=== PATIENT | female | born 1985 | race Caucasian/White ===

== ENCOUNTER 2016-06-25 07:49 | Emergency (ER) | payer BC, OTHER ==
[~2016-06-25] VITALS: Ht 160 cm; Wt 77.5 kg
[~2016-06-25 07:49] MED LIST: CHOL100010 PO; CLR10 PO; MTR600X PO; OXYC5TAB PO; PRENTAB26 PO; SERT-234 PO
[2016-06-25 07:51] VITALS: TEMP 36.4; Ht 160 cm; Wt 77.5 kg
[2016-06-25] MEDS ORDERED: ONDANSETRON INJ 2 MG/ML 2 ML VIAL IV STA ×2 (08:28→11:24)
[2016-06-25] MEDS ORDERED: SODIUM CHLORIDE 0.9% 1000ML 1,000 ML IV ONE ×2 (08:30)
[2016-06-25 08:52] LABS: COMPLETE YES; EOS % 0.3 %; HEMATOCRIT 44.1 % (37-47); IG% 0.2 %; LYMPH % 5.3 %; LYMPH ABS # 0.53 K/uL (1.2-3.4); MEAN CELL VOLUME 82.1 fL (80-100); MEAN CORPUSCULAR HEMOGLOBIN 28.5 pg (25-34); MEAN CORPUSCULAR HGB CONC 34.7 g/dl (32-36); MEAN PLATELET VOLUME 9.9 fL (7.4-10.4); MONO % 4.2 %; PLATELET COUNT 227 K/uL (130-400); RED BLOOD COUNT 5.37 M/uL (4.2-5.4); WHITE BLOOD COUNT 10.07 K/uL (4.8-10.8)
[2016-06-25 09:00] LABS: CALCIUM 9.3 mg/dl (8.5-10.1); CREATININE 0.87 mg/dl (0.60-1.20); POTASSIUM 4.1 mmol/L (3.5-5.1)
[2016-06-25 09:03] LABS: ALB/GLOB RATIO 1.2 (0.9-2)
[2016-06-25 09:05] LABS: URINE APPEARANCE CLEAR (CLEAR); URINE BILIRUBIN NEG (NEG); URINE COLOR DK YELLOW; URINE NITRITE NEG (NEG); URINE PH >= 9.0 (4.5-7.5); URINE SPECIFIC GRAVITY 1.033 (1.000-1.030); UROBILINOGEN NEG (NEG); ZZUR CULT IF INDIC CLEAN CATCH NO
[2016-06-25 09:17] LABS: MANUAL MICROSCOPIC REQUIRED? YES; REVIEW REQ? NO
[2016-06-25 09:18] LABS: SULFASALICYLIC ACID NEG (NEG)
[2016-06-25] MEDS ORDERED: KETOROLAC TROMETHAMINE 30 MG/ML VIAL IV STA (09:20)
--- NOTE | 2016-06-25 09:24 | DIAGNOSTIC IMAGING REPORT ---
KUB CLINICAL HISTORY: Nausea and vomiting. Diarrhea. FINDINGS: 2 AP supine abdominal radiographs are correlated with abdominal CT dated 03/04/2016. There is a nonobstructed abdominal bowel gas pattern. No evidence of intraperitoneal free air is seen on these supine views. There are no abnormal abdominal calcifications. The bony structures appear intact. The lung bases are clear as imaged. IMPRESSION: Unremarkable abdominal radiographs. Electronically signed by: Dannie Garcia M.D. 06/25/2016 9:22 AM Dictated Date/Time: 06/25/2016 9:21 AM
[2016-06-25 09:39] LABS: URINE RBC 0-4 /hpf (0-4)
[2016-06-25 09:40] LABS: URINE BACTERIA NEG (NEG)
[2016-06-25 11:05] VITALS: BP 101/58; PULSE 107; O2SAT 98
[2016-06-25] MEDS ORDERED: ONDA4TAB10 SL (11:26)
--- NOTE | 2016-06-25 13:52 | EMERGENCY ROOM VISIT NOTE ---
History First contact with patient: 07:56 Chief Complaint: VOMITING Stated Complaint: VOMITING/DIARRHEA Nursing Triage Summary: pt c/o diarrhea and vomiting started last night at 2230. pt reports this is 3rd time in 1.5 weeks. abd pain in mid abd History of Present Illness The patient is a 31 year old female who presents to the Emergency Room with complaints of nausea, vomiting, and diarrhea that has been ongoing for about the past 10 hours. The patient has not been ill recently, and has some mild abdominal cramping. She does not believe that she is . The patient is without vaginal complaints or lightheadedness. She has developed a mild headache from her emesis. She does report being on antibiotics about a month ago. She does not have a past history of C. difficile. She rates her discomfort an 8/10. Review of Systems More than 10 systems were reviewed and otherwise negative with the exception of history of present illness. Past Medical/Surgical History Medical Problems: (1) Gestational hypertension (2) (3) Supervision of normal intrauterine in primigravida Family History Diabetes mellitus Heart disease Hypertension Social History Smoking Status: Never Smoker Marital Status: single Occupation Status: employed Current/Historical Medications Scheduled Cholecalciferol (Vitamin D), 2,000 INTER.UNIT PO DAILY Loratadine (Claritin), 10 MG PO DAILY Multivit/Min/Iron/Fol Ac/Pren ( Vitamin), 1 TAB PO DAILY Ondasetron Odt (Zofran Odt), 4 MG SL Q6H Sertraline (Zoloft), 100 MG PO DAILY Scheduled PRN Ibuprofen (Ibuprofen), 600 MG PO Q4H PRN for Pain, SIBLEY, Cramping, or Fever Allergies Coded Allergies: Dior (Verified Allergy, Intermediate, SWELLING, 06/25/16) Cat Dander (Verified Allergy, Intermediate, itching, 06/25/16) Clindamycin (Verified Allergy, Mild, FACIAL SWELLING., 06/25/16) Sulfamethoxazole (Verified Allergy, Mild, LIP SWELLING, 06/25/16) Trimethoprim (Verified Allergy, Mild, LIP SWELLING, 06/25/16) Penicillins (Verified Allergy, Unknown, RASH, 06/25/16) Physical Exam Vital Signs Date Time Temp Pulse Resp B/P Pulse Ox O2 Delivery O2 Flow Rate FiO2 06/25/16 11:05 107 20 101/58 98 Room Air 06/25/16 09:19 98 18 99/67 98 Room Air 06/25/16 07:51 36.4 118 18 114/71 97 Room Air Pain Rating (0-10): 4.0 Physical Exam VITALS: Vitals are noted on the nurse's note and reviewed by myself. Vital signs stable. GENERAL: Well-developed, well-nourished, white female, who is in no acute distress and resting comfortably. Patient is cooperative with the examination. HEAD: Normocephalic atraumatic. MOUTH: Mucous membranes moist. Tonsils are not enlarged. Pharynx without erythema, blood, or exudate. Uvula midline. Airway patent. NECK: Supple without nuchal rigidity. No lymphadenopathy. No thyromegaly. Cervical spine is nontender. HEART: Regular rate and rhythm without murmurs gallops or rubs. LUNGS: Clear to auscultation bilaterally without wheezes, rales or rhonchi. No retractions or accessory muscle use. ABDOMEN: Positive normal bowel sounds x 4. Soft, nontender, without masses or organomegaly. No guarding or rebound tenderness. MUSCULOSKELETAL: No muscle atrophy, erythema, or edema noted. Full range of motion without joint tenderness in all extremities. NEURO: Patient was alert and oriented to person place and time. CN II through XII grossly intact. Medical Decision & Procedures ER Provider Diagnostic Interpretation: KUB CLINICAL HISTORY: Nausea and vomiting. Diarrhea. FINDINGS: 2 AP supine abdominal radiographs are correlated with abdominal CT dated 03/04/2016. There is a nonobstructed abdominal bowel gas pattern. No evidence of intraperitoneal free air is seen on these supine views. There are no abnormal abdominal calcifications. The bony structures appear intact. The lung bases are clear as imaged. IMPRESSION: Unremarkable abdominal radiographs. Laboratory Results 06/25/16 08:20 Red Blood Count 5.37, Mean Corpuscular Volume 82.1, Mean Corpuscular Hemoglobin 28.5, Mean Corpuscular Hemoglobin Concent 34.7, Mean Platelet Volume 9.9, Neutrophils (%) (Auto) 90.0, Lymphocytes (%) (Auto) 5.3, Monocytes (%) (Auto) 4.2, Eosinophils (%) (Auto) 0.3, Basophils (%) (Auto) 0.0, Neutrophils # (Auto) 9.07, Lymphocytes # (Auto) 0.53, Monocytes # (Auto) 0.42, Eosinophils # (Auto) 0.03, Basophils # (Auto) 0.00 06/25/16 08:20 Test 06/25/16 08:12 06/25/16 08:20 Urine Color DK YELLOW Urine Appearance CLEAR (CLEAR) Urine pH >= 9.0 (4.5-7.5) Urine Specific [place] 1.033 (1.000-1.030) Urine Protein NEG (NEG) Urine Glucose (UA) NEG (NEG) Urine Ketones NEG (NEG) Urine Occult Blood NEG (NEG) Urine Nitrite NEG (NEG) Urine Bilirubin NEG (NEG) Urine Urobilinogen NEG (NEG) Urine Leukocyte Esterase TRACE (NEG) Urine WBC (Auto) /hpf (0-5) Urine RBC (Auto) /hpf (0-4) Urine Hyaline Casts (Auto) /lpf (0-5) Urine Epithelial Cells (Auto) /lpf (0-5) Urine Bacteria (Auto) (NEG) Urine RBC 0-4 /hpf (0-4) Urine WBC 1-5 /hpf (0-5) Urine Epithelial Cells 10-20 /lpf (0-5) Urine Bacteria NEG (NEG) Urine Test NEG (NEG) White Blood Count 10.07 K/uL (4.8-10.8) Red Blood Count 5.37 M/uL (4.2-5.4) Hemoglobin 15.3 g/dL (12.0-16.0) Hematocrit 44.1 % (37-47) Mean Corpuscular Volume 82.1 fL (80-100) Mean Corpuscular Hemoglobin 28.5 pg (25-34) Mean Corpuscular Hemoglobin Concent 34.7 g/dl (32-36) Platelet Count 227 K/uL (130-400) Mean Platelet Volume 9.9 fL (7.4-10.4) Neutrophils (%) (Auto) 90.0 % Lymphocytes (%) (Auto) 5.3 % Monocytes (%) (Auto) 4.2 % Eosinophils (%) (Auto) 0.3 % Basophils (%) (Auto) 0.0 % Neutrophils # (Auto) 9.07 K/uL (1.4-6.5) Lymphocytes # (Auto) 0.53 K/uL (1.2-3.4) Monocytes # (Auto) 0.42 K/uL (0.11-0.59) Eosinophils # (Auto) 0.03 K/uL (0-0.5) Basophils # (Auto) 0.00 K/uL (0-0.2) RDW Standard Deviation 43.8 fL (36.4-46.3) RDW Coefficient of Variation 14.5 % (11.5-14.5) Immature Granulocyte % (Auto) 0.2 % Immature Granulocyte # (Auto) 0.02 K/uL (0.00-0.02) Anion Gap 11.0 mmol/L (3-11) Est Creatinine Clear Calc Drug Dose 94.0 ml/min Estimated GFR () 104.3 Estimated GFR (Non- 90.0 BUN/Creatinine Ratio 23.0 (10-20) Calcium Level 9.3 mg/dl (8.5-10.1) Magnesium Level 2.0 mg/dl (1.8-2.4) Total Bilirubin 0.5 mg/dl (0.2-1) Aspartate Amino Transf (AST/SGOT) 12 U/L (15-37) Alanine Aminotransferase (ALT/SGPT) 17 U/L (12-78) Alkaline Phosphatase 98 U/L (45-117) Total Protein 8.0 gm/dl (6.4-8.2) Albumin 4.4 gm/dl (3.4-5.0) Globulin 3.6 gm/dl (2.5-4.0) Albumin/Globulin Ratio 1.2 (0.9-2) Lipase 199 U/L (73-393) Medications Administered Medications (Trade) Dose Ordered Sig/Lucinda Route Start Time Stop Time Status Last Admin Dose Admin Sodium Chloride 1,000 ml @ 999 mls/hr Q1H1M ONCE IV 06/25/16 08:30 06/25/16 09:30 DC 06/25/16 08:30 999 MLS/HR Sodium Chloride (Nss 1000ml) 1,000 ml @ 999 mls/hr Q1H1M ONCE IV 06/25/16 08:30 06/25/16 09:30 DC 06/25/16 09:17 999 MLS/HR Ondansetron HCl (Zofran Inj) 4 mg NOW STAT IV 06/25/16 08:28 06/25/16 08:31 DC 06/25/16 08:47 4 MG Ketorolac Tromethamine (Toradol Inj) 30 mg NOW STAT IV 06/25/16 09:20 06/25/16 09:22 DC 06/25/16 09:51 30 MG Ondansetron HCl (Zofran Inj) 4 mg NOW STAT IV 06/25/16 11:24 06/25/16 11:25 DC 06/25/16 11:36 4 MG ED Course Physical exam and history were performed. Nursing notes and EMR were reviewed. Patient appears to have nausea, vomiting, and diarrhea for the past several hours. She does not appear toxic on exam, and certainly does not present like an acute surgical abdomen. IV access was established and labs were obtained. The patient was hydrated 2 L normal saline. She was given IV Zofran. A stool sample was ordered, however the patient was not able to provide one while under our care today. Plain film of the abdomen was performed as the patient does have a past history of abdominal surgery. The patient's blood work is as above and was reviewed. She does not have a significantly elevated white blood cell, anemia, bandemia, or gross electrolyte imbalance. Her lipase and transaminases are nondiagnostic. Urine is without evidence of infection. X-ray does not show obstructive process or other significant findings. The patient did have a mild headache, and I did provide her some IV Toradol. After 2 L of saline, the patient was able to rest very comfortably and felt much better. I will give her a course of Zofran for home use as I suspect her symptoms are either food borne or viral in nature. Repeat abdominal exams do not show significant tenderness, and her abdominal cramping is likely from the emesis. I did recommend the patient follow with her PCP on a short interval for recheck. She was otherwise invited back to the ER with any new, worsening, or concerning symptoms. The patient was pleased with plan of care and voiced understanding. The chart was completed utilizing [employer] - [employer] Voice Recognition Software. Grammatical errors, random word insertions, pronoun errors, and incomplete sentences are an occasional consequence of this system due to software limitations, ambient noise, and hardware issues. Any formal questions or concerns about the content, text, or information contained within the body of this dictation should be directly addressed to the provider for clarification. . Medical Decision Differential diagnosis: Etiologies such as gastroenteritis, food borne illness, infections, appendicitis , diverticulitis, inflammatory bowel disease, obstruction, GI bleed, biliary pathology, as well as others were entertained. Impression Primary Impression: Nausea, vomiting, and diarrhea Departure Information Dispostion Home / Self-Care Condition GOOD Prescriptions Ondasetron Odt (ZOFRAN ODT) 4 Mg Tab 4 MG SL Q6H for Nausea, #12 TAB Prov: Sander Lovell PA-C 06/25/16 Forms HOME CARE DOCUMENTATION FORM, Work Instructions, Additional Instructions: Patient was seen and evaluated in the emergency department today fo medical care. Return to work on 06/27/2016. Please excuse. IMPORTANT VISIT INFORMATION Patient Instructions A Signature Page, My [facility] Additional Instructions You were seen and evaluated today on an emergency basis only. This is not a substitute for, or an effort to provide, complete comprehensive medical care. It is not possible to recognize and treat all injuries or illnesses in a single emergency department visit. For this reason it is recommended that you followup with your primary care physician within the next week for recheck of your condition. Drink plenty of fluids and remain well hydrated. Zofran 1 tablet every 6 hrs as needed for nausea. You are welcome to return to the emergency department anytime with new, worsening, or concerning symptoms. Work Instructions Additional Work Instructions: Patient was seen and evaluated in the emergency department today for medical care. Return to work on 06/27/2016. Please excuse.
== END 2016-06-25 11:43 | disposition home or self-care (01) ==
LOC: C.EDB 07:50 → C.EDA 11:43
DX: R11.2 Nausea with vomiting, unspecified (principal); R19.7 Diarrhea, unspecified; R51 Headache; Z82.49 Family history of ischemic heart disease and other diseases of the circulatory system; Z83.3 Family history of diabetes mellitus

== ENCOUNTER → 2016-08-05 | Outpatient (CLI) | payer BC ==
[~2016-08-05] MED LIST changes: +ONDA4TAB10 SL; -OXYC5TAB PO
== END | disposition home or self-care (01) ==
LOC: C.LABPVFM 12:03
PROVIDERS: ATTEND Family Medicine
DX: J06.9 Acute upper respiratory infection, unspecified (principal)

== ENCOUNTER → 2016-12-02 | Outpatient (CLI) | payer BC ==
--- NOTE | 2016-12-02 12:07 | DIAGNOSTIC IMAGING REPORT ---
CHEST 2 VIEWS ROUTINE CLINICAL HISTORY: Atypical chest pain COMPARISON STUDY: 11/01/2015 FINDINGS: The cardiac and mediastinal contours are normal. There is no evidence of focal pulmonary consolidation. There is no evidence of failure. No pleural effusions are visualized.[ IMPRESSION: No active disease in the chest. Electronically signed by: Rm Cabrera M.D. 12/02/2016 12:06 PM Dictated Date/Time: 12/02/2016 12:06 PM
== END | disposition home or self-care (01) ==
LOC: C.RADPV 11:50
PROVIDERS: ATTEND Family Medicine
DX: R07.9 Chest pain, unspecified (principal)

== ENCOUNTER → 2017-06-11 | Outpatient (CLI) | payer BC, OTHER ==
[~2017-06-11] MED LIST changes: -ONDA4TAB10 SL
[2017-06-11 12:38] LABS: BASO % 0.8 %; BASO ABS # 0.04 K/uL (0-0.2); COMPLETE YES; EOS % 0.6 %; HEMATOCRIT 41.2 % (37-47); IG% 0.2 %; LYMPH % 39.2 %; LYMPH ABS # 1.87 K/uL (1.2-3.4); MEAN CELL VOLUME 83.4 fL (80-100); MEAN CORPUSCULAR HEMOGLOBIN 28.3 pg (25-34); MEAN PLATELET VOLUME 10.2 fL (7.4-10.4); MONO % 7.8 %; NEUT % 51.4 %; PLATELET COUNT 270 K/uL (130-400); RED BLOOD COUNT 4.94 M/uL (4.2-5.4); WHITE BLOOD COUNT 4.77 K/uL (4.8-10.8)
[2017-06-11 13:10] LABS: BLOOD UREA NITROGEN 11 mg/dl (7-18); CALCIUM 9.3 mg/dl (8.5-10.1); CARBON DIOXIDE 27 mmol/L (21-32); CHLORIDE 103 mmol/L (98-107); CREATININE 0.88 mg/dl (0.60-1.20); GLUCOSE 93 mg/dl (70-99); POTASSIUM 4.2 mmol/L (3.5-5.1); SODIUM 135 mmol/L (136-145)
== END | disposition home or self-care (01) ==
LOC: C.LABPVFM 10:04
PROVIDERS: ATTEND Nurse Practitioner
DX: G43.829 Menstrual migraine, not intractable, without status migrainosus (principal); R53.83 Other fatigue

== ENCOUNTER 2018-09-03 12:13 | Observation (INO) ==
[2018-09-03] MEDS ORDERED: SODIUM CHLORIDE 0.9% 1000ML 1,000 ML IV ONE (12:44)
[2018-09-03] MEDS ORDERED: KETOROLAC TROMETHAMINE 15 MG/ML VIAL IV STA (12:44)
[2018-09-03] MEDS ORDERED: CEFEPIME 2,000 MG in SYRINGE 7.5 ML IV STA (12:44)
[2018-09-03] MEDS ORDERED: ACETAMINOPHEN 1,000 MG/100 ML VIAL IV STA (12:44)
[2018-09-03] MEDS ORDERED: DEXAMETHASONE **PF** INJ 10 MG/ML VIAL IV ONE (12:44)
[2018-09-03 13:06] LABS: Hematocrit (blood only) 36.8 % (37-47); Hemoglobin 12.7 g/dL (12.0-16.0); Mean Corpuscular Hgb Conc 34.5 g/dL (32-36); Mean Platelet Volume 9.6 fL (7.4-10.4); Platelet Count 226 K/uL (130-400); RDW Coefficient of Variation 13.2 % (11.5-14.5); Red Blood Count 4.49 M/uL (4.2-5.4); White Blood Count 24.36 K/uL (4.8-10.8)
[2018-09-03 13:23] LABS: BUN Creatinine Ratio 14.6 (10-20); Calcium 9.1 mg/dl (8.5-10.1); Creatinine Clr Calc Pharmacy 103.1 ml/min; Est GFR (African American) 119.2; Est GFR (Non-African American) 102.9; Potassium 3.8 mmol/L (3.5-5.1)
[2018-09-03 13:25] LABS: Albumin Globulin Ratio 1.1 (0.9-2); Bilirubin,Total 0.5 mg/dl (0.2-1); Globulin 3.7 gm/dl (2.5-4.0); Total Protein 7.7 gm/dl (6.4-8.2)
[2018-09-03 13:38] LABS: Basophils # (auto) 0.01 K/uL (0-0.2); Immature Granulocytes # (auto) 0.06 K/uL (0.00-0.02); Immature Granulocytes % (auto) 0.2 %; Lymphocytes # (auto) 0.59 K/uL (1.2-3.4); Lymphocytes % (auto) 2.4 %; Monocytes # (auto) 0.65 K/uL (0.11-0.59); Monocytes % (auto) 2.7 %; Neutrophils # (auto) 23.05 K/uL (1.4-6.5); Neutrophils % (auto) 94.7 %
--- NOTE | 2018-09-03 13:38 | XRay Report ---
XR soft tissue neck TECHNIQUE: AP and lateral soft tissue neck FINDINGS: Normal prevertebral soft tissues. No distention of the hypopharynx. The epiglottis is javier l. IMPRESSION: Normal study. The above report was generated using voice recognition software. It may contain grammatical, syntax or spelling errors. Electronically signed by: Nas Cervantes M.D. 09/03/2018 1:37 PM
--- NOTE | 2018-09-03 15:20 | History & Physical Report ---
Date of Service September 03, 2018 Assessment & Plan (1) Acute pharyngitis: Was strep + about 2 weeks ago and this was treated appropriately with antibiotics at that time. All pharyngitis symptoms resolved, then her sore throat returned yesterday morning. I confirmed that her strep test (rapid) was indeed NEGATIVE yesterday AM at [facility]. Throat culture was sent and to date is negative. Monospot in the ER today was negative. The appearance of her throat today has more of a viral appearance with copious numbers of petechial hemorrhages with occasional ulcerations (adenovirus, coxsackie, etc can look like this) on the palate. Will await the throat culture sent by [facility] yesterday morning. Was given IV abx earlier in the ER - will defer for now on additional antibiotics unless her throat culture is positive. Was given decadron 10mg IV x 1 - this should help with pain control. Clears as tolerated. Magic mouthwash ac/hs swish/spit. Viscous lidocaine prn. [place] prn. IV fluids. Repeat cbc in am. Could conside an EBV panel but the throat appearance would be unusual for mono as well. Present on Admission?: Yes (2) Dehydration: Received saline bolus in ER. Will give additional IV fluids and repeat her chemistries in the am. Allow clear liquid diet and advance as tolerated. Check urine test. mother updated at bedside place on observation status. Present on Admission?: Yes History of Present Illness Chief Complaint: sore throat Primary Care Provider: Lisseth Cintron MD 33yo female with recent history of strep throat about 2 weeks ago - treated with 7-day course of oral antibiotics - presents with recurrent sore throat beginning yesterday morning. She was seen in the [facility] clinic yesterday AM and was rechecked for strep -- rapid strep was negative. She went to the [facility] clinic this am -- had rapid flu test that was negative. Had fever last night - 103. She decided to come to ER today because of difficulty swallowing. Allergies Allergy/AdvReac Type Severity Reaction Status Date / Time cat dander Allergy Intermediate itching Verified 09/03/18 14:44 clindamycin Allergy Mild FACIAL Verified 09/03/18 14:44 SWELLING. sulfamethoxazole Allergy Mild LIP Verified 09/03/18 14:44 SWELLING trimethoprim Allergy Mild LIP Verified 09/03/18 14:44 SWELLING Penicillins Allergy Unknown RASH Verified 09/03/18 14:44 Dior Allergy Intermediate SWELLING Uncoded 09/03/18 14:44 Home Medications Home Medications Medication Instructions Recorded Confirmed Type albuterol sulfate [ProAir HFA] 2 puff INHALATION DAILY PRN 09/03/18 09/03/18 History cholecalciferol (vitamin D3) 5,000 unit PO HS 09/03/18 09/03/18 History [Vitamin D3] ibuprofen 200 mg PO QID PRN 09/03/18 09/03/18 History loratadine 10 mg PO HS 09/03/18 09/03/18 History sertraline 100 mg PO HS 09/03/18 09/03/18 History Past Med/Surg History Medical History Supervision of normal intrauterine in primigravida Gestational hypertension Surgical History H/O umbilical hernia repair History of Family History Father Hypertension Hyperlipidemia Social History Preferred Language: [place] marital status details: lives with significant other Current Living Situation Comment: lives in [place] current occupational status: employed 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 [place] other: 1 son - age 2yo Feels Safe at Home: Yes Smoking Status: Never smoker Hx Alcohol Use: No Review of Systems Constitutional: + fever, + chills and + anorexia; no weight loss and no weight gain Eyes: no eye pain and no worsening vision Ear, Nose, Mouth, Throat: + ear pain, + sore throat and + dysphagia; no nasal congestion Respiratory: no cough and no dyspnea Cardiovascular: no chest pain Gastrointestinal: + vomiting; no abdominal pain and no diarrhea/loose stools Genitourinary (Female): no dysuria LMP - 2 weeks ago Musculoskeletal: + myalgia Integumentary: no rash Neurologic: no numbness Psychiatric: + anxiety; no depression no diabetes Physical Exam Vital Signs (Past 24 Hours): Last Vital Signs Temp 37.2 C 09/03/18 12:20 Pulse 110 H 03/22/19 15:00 Resp 18 09/03/18 15:00 BP 123/77 09/03/18 15:00 Pulse Ox 95 09/03/18 15:00 Constitutional: well developed, well nourished, + ill appearing (looks sick but nontoxic) and average body habitus; no acute distress and no altered mental status Eyes: PERRL, conjunctivae normal, anicteric sclerae ENMT: Ears: + TM abnormality (retracted b/l) Nose: no nasal mucous membrane abnormality and no nasal discharge Mouth: + oropharynx abnormality (see below) tonsils 1+ b/l, minimal exudate on left. Severe petechial hemorrhages of posterior palate and posterior pharyngeal wall with some ulcerations. Neck: trachea midline, no thyromegaly Respiratory: normal respiratory effort, lungs clear to auscultation Cardiovascular: Rate/Rhythm: + tachycardic Heart Sounds: normal S1 and normal S2; no murmur Vessels: posterior tibial pulses present and dorsalis pedis pulses present; no JVD Extremities: no pedal edema Gastrointestinal (Abdomen): normal bowel sounds, soft, nontender, no hepatosplenomegaly Musculoskeletal: no cyanosis or clubbing, extremities motor strength 5/5 Skin: no rashes, warm and dry Neurologic: deep tendon reflexes 2+ bilaterally; no focal motor deficits Psychiatric: A+Ox3, euthymic affect Lymphatic: + cervical lymphadenopathy (1-1.5cm nodes right neck, shotty nodes left neck) Results & Data Laboratory Results Laboratory Results - last 24 hr 09/03/18 09/03/18 09/03/18 12:55 12:55 12:55 WBC 24.36 H RBC 4.49 Hgb 12.7 Hct 36.8 L MCV 82.0 MCH 28.3 MCHC 34.5 RDW Std Deviation 40.0 RDW Coeff of [place] 13.2 Plt Count 226 MPV 9.6 Immature Gran % (Auto) 0.2 Neut % (Auto) 94.7 Lymph % (Auto) 2.4 Mclennan % (Auto) 2.7 Eos % (Auto) 0.0 Baso % (Auto) 0.0 Immature Gran # (Auto) 0.06 H Neut # (Auto) 23.05 H Lymph # (Auto) 0.59 L Mclennan # (Auto) 0.65 H Eos # (Auto) 0.00 Baso # (Auto) 0.01 Sodium 137 Potassium 3.8 Chloride 104 Carbon Dioxide 26 Anion Gap 7.0 BUN 11 Creatinine 0.77 Est Cr Clr Drug Dosing 103.1 Est GFR ( Amer) 119.2 Est GFR (Non-Af Amer) 102.9 BUN/Creatinine Ratio 14.6 Glucose 131 H Calcium 9.1 Total Bilirubin 0.5 AST 9 L ALT 18 Alkaline Phosphatase 68 Total Protein 7.7 Albumin 4.0 Globulin 3.7 Albumin/Globulin Ratio 1.1 Monoscreen Negative Diagnostic Findings soft tissue neck x-ray -- normal Code Status & VTE Plan Code Status level 1 full code VTE Prophylaxis Plan VTE Prophylaxis will be ordered: No Reason for no VTE drug order: Treatment not indicated Reason for no VTE mechanical prophylaxis: Treatment not indicated (1) Acute pharyngitis Pharyngitis/tonsillitis etiology: unspecified etiology Qualified Code(s): J02.9 - Acute pharyngitis, unspecified
--- NOTE | 2018-09-03 16:42 | Emergency Department Note ---
Entered by Jil King acting as a scribe for Dannie Gerber MD History of Present Illness General Chief complaint: Sore Throat Stated complaint: swollen throat Time Seen by Provider: 09/03/18 12:31 Source: patient History of Present Illness Onset (ago): day(s) 1 Location: mouth (Throat) Severity: similar to prior episodes Pain Consistency: + other (Worsening) Maximum Pain Intensity: 10 Quality: + other (Throat pain) Exacerbated By: + other (Drinking liquids) Associated symptoms: + fever/chills (Positive chills. Negative fever. ) and + other (Positive throat pain, ear pain, body aches. Negative dysuria, diarrhea and rhinorrhea) The patient is a 33 year old female who presents to the Emergency Room with complaints of worsening throat pain starting 1 day ago. The patient reports that she has severe throat pain. She states that she has chills, body aches, ear pain in both ears and has vomited. She notes that she tested positive for Strep throat a few weeks ago, but tested negative for Strep throat 2 days ago. She adds that she tested negative for influenza earlier today. The patient reports that multiple members of her family have recently had Strep throat. She states that she did receive a flu shot this past winter. She notes that drinking liquids worsens her throat pain. She denies dysuria, diarrhea and rhinorrhea. Home Medications Home Medications Medication Instructions Recorded Confirmed Type albuterol sulfate [ProAir HFA] 2 puff INHALATION DAILY PRN 09/03/18 09/03/18 History cholecalciferol (vitamin D3) 5,000 unit PO HS 09/03/18 09/03/18 History [Vitamin D3] ibuprofen 200 mg PO QID PRN 09/03/18 09/03/18 History loratadine 10 mg PO HS 09/03/18 09/03/18 History sertraline 100 mg PO HS 09/03/18 09/03/18 History Allergies Allergy/AdvReac Type Severity Reaction Status Date / Time cat dander Allergy Intermediate itching Verified 09/03/18 14:44 clindamycin Allergy Mild FACIAL Verified 09/03/18 14:44 SWELLING. sulfamethoxazole Allergy Mild LIP Verified 09/03/18 14:44 SWELLING trimethoprim Allergy Mild LIP Verified 09/03/18 14:44 SWELLING Penicillins Allergy Unknown RASH Verified 09/03/18 14:44 Dior Allergy Intermediate SWELLING Uncoded 09/03/18 14:44 Past Med/Surg History Medical History Supervision of normal intrauterine in primigravida Gestational hypertension Surgical History H/O umbilical hernia repair History of Family History Father Hypertension Hyperlipidemia Social History Preferred Language: Pashto Communication Ability: Effective Debeaker Required: No Beliefs That Will Affect Care: None marital status details: lives with significant other Current Living Situation: Alone Current Living Situation Comment: lives in [place] current occupational status: employed current occupation: works at [employer] - [employer] work in [place]orms other: 1 son - age 2yo Feels Safe at Home: Yes Safety Concerns: Feels Safe At This Time Smoking Status: Never smoker Hx Alcohol Use: No Hx Substance Use: No Review of Systems See HPI for pertinent positives & negatives. and A total of 10 systems reviewed and were otherwise negative Physical Exam Vital Signs Vital Signs - 24 hr 09/03/18 12:20 09/03/18 14:01 09/03/18 14:31 Temperature 37.2 C Temperature Source Oral Sepsis Recent Fever Within 48 Hours Yes Sepsis New/Unexplained Change in Mental Status No Sepsis Action Taken by Nursing No Action Required Pulse Rate 97 H 121 H 114 H Pulse Rate [Apical] Pulse Rate from SpO2 Sensor 122 H 114 H Respiratory Rate 12 18 18 Respiratory Effort / Characteristics Non-Labored Spontaneous Respiratory Depth Normal Blood Pressure 119/77 108/70 123/77 Blood Pressure [Right Arm] Blood Pressure Mean 91 82 92 Blood Pressure Mean [Right Arm] Blood Pressure Position Sitting Blood Pressure Position [Right Arm] Pulse Oximetry 97 95 96 Oxygen Delivery Method Room Air 09/03/18 15:00 09/03/18 16:41 09/03/18 17:17 Temperature 36.8 C Temperature Source Oral Sepsis Recent Fever Within 48 Hours Sepsis New/Unexplained Change in Mental Status Sepsis Action Taken by Nursing Pulse Rate 103 H Pulse Rate [Apical] 110 H 100 H Pulse Rate from SpO2 Sensor Respiratory Rate 18 18 18 Respiratory Effort / Characteristics Non-Labored Respiratory Depth Normal Blood Pressure 116/67 Blood Pressure [Right Arm] 123/77 118/78 Blood Pressure Mean Blood Pressure Mean [Right Arm] 92 91 Blood Pressure Position Blood Pressure Position [Right Arm] Sitting Pulse Oximetry 95 96 96 Oxygen Delivery Method Room Air Room Air Room Air GENERAL: Patient is in moderate distress. Tearful secondary to pain. HEENT: No acute trauma, normocephalic atraumatic, mucous membranes moist, no nasal congestion, no scleral icterus. Throat is erythematous with multiple ulcers. No evidence for peritonsillar abscess. No uvular edema. TMs clear bilaterally. NECK: No stridor, no adenopathy, no meningismus, trachea is midline. LUNGS: Clear to auscultation bilaterally, no wheeze, no rhonchi, breath sounds equal. HEART: Tachycardic. No murmurs. Regular rhythm. ABDOMEN: Soft, nontender, bowel sounds positive, no hernias, no peritonitis. EXTREMITIES: No cyanosis or edema, full range of motion of all the joints without pain or difficulty, no signs for acute trauma. NEUROLOGIC: Oriented x 3, no acute motor or sensory deficits, no focal weakness. SKIN: No rash, no jaundice, no diaphoresis. Course 1253: Past medical records reviewed. The patient was evaluated in room C8, and a complete history and physical examination were performed. 1406: I reevaluated the patient at this time. We discussed possible admission. 1422: I reviewed the patient's case with Dr. Jay woodard. He will evaluate the patient for further management. Consultations Consultation #1: I reviewed the patient's case with Dr. Jay woodard. He will evaluate the patient for further management. Time: 14:22 Administered Medications Discontinued Medications Dexamethasone Sodium Phosphate (Decadron Pf) 10 mg IV NOW ONE Stop: 09/03/18 12:45 Last Admin: 09/03/18 13:17 Dose: 10 mg Documented by: [id number] Acetaminophen (Ofirmev) 1,000 mg in 100 mls @ 400 mls/hr IV NOW STA Stop: 09/03/18 12:58 Last Infusion: 09/03/18 13:57 Dose: 0 mls/hr Documented by: [id number] Infusion: 09/03/18 13:56 Dose: 0 mls/hr Documented by: [id number] Admin: 09/03/18 13:17 Dose: 400 mls/hr Documented by: [id number] Cefepime HCl 2,000 mg/ Syringe 20 mls @ 5.5 mls/min IV NOW STA Stop: 09/03/18 12:47 Last Admin: 09/03/18 13:09 Dose: 5.5 mls/min Documented by: [id number] Sodium Chloride (Nss 1000ml) 1,000 mls @ 999 mls/hr IV .Q1H1M ONE Stop: 09/03/18 13:44 Last Infusion: 09/03/18 14:16 Dose: 0 mls/hr Documented by: [id number] Admin: 09/03/18 13:17 Dose: 999 mls/hr Documented by: [id number] Sodium Chloride (Nss 1000ml) 500 mls @ 999 mls/hr IV .Q31M ONE Stop: 09/03/18 17:42 Last Admin: 09/03/18 18:27 Dose: 999 mls/hr Documented by: [id number] Ketorolac Tromethamine (Toradol) 15 mg IV NOW STA Stop: 09/03/18 12:45 Last Admin: 09/03/18 13:17 Dose: 15 mg Documented by: [id number] Medical Decision Making Differential Diagnosis Differentials include tonsillitis, peritonsillar abscess, dehydration, mono nucleosis, strep infection, uvular edema, epiglottitis, electrolyte imbalance and influenza among others. Medical Records Attestation: I reviewed the patient's medical records. Home Medications Current Medication List: was personally reviewed by me Laboratory Data Attestation: I reviewed the patient's lab results. Result diagrams: 09/03/18 12:55 09/03/18 12:55 Lab Results 09/03/18 09/03/18 09/03/18 Range/Units 12:55 12:55 12:55 WBC 24.36 H (4.8-10.8) K/uL RBC 4.49 (4.2-5.4) M/uL Hgb 12.7 (12.0-16.0) g/dL Hct 36.8 L (37-47) % MCV 82.0 (80-100) fL MCH 28.3 (25-34) pg MCHC 34.5 (32-36) g/dL RDW Std Deviation 40.0 (36.4-46.3) fL RDW Coeff of Alba 13.2 (11.5-14.5) % Plt Count 226 (130-400) K/uL MPV 9.6 (7.4-10.4) fL Immature Gran % (Auto) 0.2 % Neut % (Auto) 94.7 % Lymph % (Auto) 2.4 % Clinch % (Auto) 2.7 % Eos % (Auto) 0.0 % Baso % (Auto) 0.0 % Immature Gran # (Auto) 0.06 H (0.00-0.02) K/uL Neut # (Auto) 23.05 H (1.4-6.5) K/uL Lymph # (Auto) 0.59 L (1.2-3.4) K/uL Clinch # (Auto) 0.65 H (0.11-0.59) K/uL Eos # (Auto) 0.00 (0-0.5) K/uL Baso # (Auto) 0.01 (0-0.2) K/uL Sodium 137 (136-145) mmol/L Potassium 3.8 (3.5-5.1) mmol/L Chloride 104 (98-107) mmol/L Carbon Dioxide 26 (21-32) mmol/L Anion Gap 7.0 (3-11) BUN 11 (7-18) mg/dl Creatinine 0.77 (0.6-1.2) mg/dl Est Cr Clr Drug Dosing 103.1 ml/min Est GFR ( Amer) 119.2 Est GFR (Non-Af Amer) 102.9 BUN/Creatinine Ratio 14.6 (10-20) Glucose 131 H (70-99) mg/dl Calcium 9.1 (8.5-10.1) mg/dl Total Bilirubin 0.5 (0.2-1) mg/dl AST 9 L (15-37) U/L ALT 18 (12-78) U/L Alkaline Phosphatase 68 (45-117) U/L Total Protein 7.7 (6.4-8.2) gm/dl Albumin 4.0 (3.4-5.0) gm/dl Globulin 3.7 (2.5-4.0) gm/dl Albumin/Globulin Ratio 1.1 (0.9-2) Monoscreen Negative (Negative) Imaging Data Radiologist's Impression: Radiology results as stated below per my review and the radiologist's interpretation: XR soft tissue neck TECHNIQUE: AP and lateral soft tissue neck FINDINGS: Normal prevertebral soft tissues. No distention of the hypopharynx. The epiglottis is normal. IMPRESSION: Normal study. The above report was generated using voice recognition software. It may contain grammatical, syntax or spelling errors. Electronically signed by: Nas Cervantes M.D. 09/03/2018 1:37 PM Blood Pressure Blood Pressure Findings: Normal blood pressure Blood Pressure Disposition: further management by hospitalist MDM Narrative There is a significant leukocytosis at 24,000, this could be consistent with infection or even her pain and distress. No anemia. No significant electrolyte abnormality, kidney failure or hepatitis. Clinch testing was negative. Soft tissue x-ray of the neck did not show abscess or significant airway compromise. The patient received IV saline, she was given IV Decadron, IV Toradol, IV Tylenol and IV cefepime. She does feel better but still has a hard time swallowing. Patient has a tonsillitis, she has herpangina. She cannot eat or drink, she is a high white count. I do not think she is stable for discharge. She requires further hydration and care. An ENT consult may be in her best interest. I did speak to the patient and case management, the on-call hospitalist was consulted. Of note, clinically, there was no evidence for peritonsillar abscess. Impression & Plan Acute tonsillitis, Herpangina, Leukocytosis, Dehydration Discharge Plan Visit Data *Final* Discharge Date/Time: 09/03/18 16:41 Chief Complaint: Sore Throat Stated Complaint: swollen throat ED Provider: Dannie Gerber Discharge Problem: Acute tonsillitis, Herpangina, Leukocytosis, Dehydration Patient Disposition: Admitted As Inpatient Discharge Instructions Interventions: ED Discharge Assessment Last Done: 09/03/18 16:41 Discharge Problem: Acute tonsillitis Qualifiers: Pharyngitis/tonsillitis etiology: unspecified etiology Qualified Code(s): J03.90 - Acute tonsillitis, unspecified Leukocytosis Qualifiers: Leukocytosis type: unspecified Qualified Code(s): D72.829 - Elevated white blood cell count, unspecified The scribe's documentation has been prepared under my direction and personally reviewed by me in its entirety. I confirm that the note above accurately reflects all work, treatment, procedures, and medical decision making performed by me.
[2018-09-03] MEDS ORDERED: ALBUTEROL HFA INHALER 8.5 GM INH PRN (17:12)
[2018-09-03] MEDS ORDERED: ACETAMINOPHEN 500 MG TAB PO PRN (17:12)
[2018-09-03] MEDS ORDERED: ONDANSETRON INJ 2 MG/ML 2 ML VIAL IV PRN (17:12)
[2018-09-03] MEDS ORDERED: HYDROCODONE/ACETAMOPHEN 5/325MG TAB PO PRN (17:12)
[2018-09-03] MEDS ORDERED: SODIUM CHLORIDE 0.9% 1000ML 500 ML IV ONE (17:12)
[2018-09-03] MEDS: SODIUM CHLORIDE 0.9% 1000ML 1,000 ML IV SCH ×2 (19:02→23:44)
[2018-09-03] MEDS: DEXAMETHASONE CONC 3.75 MG, NYSTATIN 30 ML, DiphenhydrAMINE Syrup 300 MG, ORA-SWEET SYR... PO SCH ×2 (19:06→20:57)
[2018-09-03] MEDS: KETOROLAC 30 MG/ML VIAL IV PRN (20:49)
[2018-09-03] MEDS ORDERED: LORATADINE 10 MG TAB PO SCH (21:00)
[2018-09-03] MEDS ORDERED: CHOLECALCIFEROL 1,000 UNITS TAB PO SCH (21:00)
[2018-09-03] MEDS ORDERED: SERTRALINE HCL 100 MG TABLET PO SCH (21:00)
[2018-09-03] MEDS: LIDOCAINE HCL VISCOUS SOLN 2% 15 ML UDC MT PRN (23:49)
[2018-09-04] MEDS: KETOROLAC 30 MG/ML VIAL IV PRN (05:34)
[2018-09-04] MEDS: LIDOCAINE HCL VISCOUS SOLN 2% 15 ML UDC MT PRN (05:35)
[2018-09-04 06:33] LABS: Basophils # (auto) 0.01 K/uL (0-0.2); Basophils % (auto) 0.1 %; Hematocrit (blood only) 33.4 % (37-47); Hemoglobin 11.2 g/dL (12.0-16.0); Immature Granulocytes # (auto) 0.03 K/uL (0.00-0.02); Immature Granulocytes % (auto) 0.2 %; Lymphocytes # (auto) 0.92 K/uL (1.2-3.4); Lymphocytes % (auto) 6.1 %; Mean Corpuscular Hgb Conc 33.5 g/dL (32-36); Mean Corpuscular Volume 83.3 fL (80-100); Mean Platelet Volume 9.7 fL (7.4-10.4); Monocytes # (auto) 0.68 K/uL (0.11-0.59); Monocytes % (auto) 4.5 %; Neutrophils # (auto) 13.45 K/uL (1.4-6.5); Neutrophils % (auto) 89.1 %; Platelet Count 213 K/uL (130-400); RDW Coefficient of Variation 13.5 % (11.5-14.5); Red Blood Count 4.01 M/uL (4.2-5.4); White Blood Count 15.09 K/uL (4.8-10.8)
[2018-09-04] MEDS: DEXAMETHASONE CONC 3.75 MG, NYSTATIN 30 ML, DiphenhydrAMINE Syrup 300 MG, ORA-SWEET SYR... PO SCH (07:10)
[2018-09-04 07:11] LABS: BUN Creatinine Ratio 16.1 (10-20); Calcium 7.8 mg/dl (8.5-10.1); Creatinine Clr Calc Pharmacy 149.8 ml/min; Est GFR (African American) 146.6; Est GFR (Non-African American) 126.5; Potassium 3.6 mmol/L (3.5-5.1)
[2018-09-04] MEDS: SODIUM CHLORIDE 0.9% 1000ML 1,000 ML IV SCH (07:49)
[2018-09-04 08:33] LABS: Pregnancy Test, Urine Negative (Negative)
--- NOTE | 2018-09-04 17:45 | Discharge Summary ---
Date of Service September 04, 2018 Admission HPI Per Admitting Provider 33yo female with recent history of strep throat about 2 weeks ago - treated with 7-day course of oral antibiotics - presents with recurrent sore throat beginning yesterday morning. She was seen in the [facility] yesterday AM and was rechecked for strep -- rapid strep was negative. She went to the [facility] clinic this am -- had rapid flu test that was negative. Had fever last night - 103. She decided to come to ER today because of difficulty swallowing. Principal Diagnosis Acute Pharyngitis/Strep Pharyngitis Discharge Exam Constitutional well developed, well nourished and average body habitus; no acute distress Eyes + anicteric sclerae ENMT Nose: no nasal discharge tonsils 1+ b/l, minimal exudate L side. Severe petechial hemorrhages of posterior palate and posterior pharyngeal wall with some ulcerations mostly isolated to L side; uvula midline without evidence of peritonsilar abscess on assessment; lymphadenopathy palpable in R anterior cervical chain only; slight flushing of b/l cheeks but no tenderness/pressure to palpation of maxillary sinuses Neck trachea midline Respiratory normal respiratory effort, lungs clear to auscultation Cardiovascular Rate/Rhythm: regular rate and regular rhythm Heart Sounds: no murmur Vessels: no JVD Extremities: no pedal edema Gastrointestinal (Abdomen) Inspection/Auscultation: normal bowel sounds Percussion/Palpation: abdomen soft; abdomen nontender Musculoskeletal Head/Neck/Chest: normocephalic, head atraumatic and neck supple Skin no rashes, warm and dry Neurologic moves all extremities; no focal motor deficits Psychiatric A+Ox3, euthymic affect Lymphatic + cervical lymphadenopathy (R anterior chain) Discharge Data Allergies Allergy/AdvReac Type Severity Reaction Status Date / Time cat dander Allergy Intermediate itching Verified 09/03/18 14:44 clindamycin Allergy Mild FACIAL Verified 09/03/18 14:44 SWELLING. sulfamethoxazole Allergy Mild LIP Verified 09/03/18 14:44 SWELLING trimethoprim Allergy Mild LIP Verified 09/03/18 14:44 SWELLING Penicillins Allergy Unknown RASH Verified 09/03/18 14:44 Dior Allergy Intermediate SWELLING Uncoded 09/03/18 14:44 Consultations 09/03/18 14:16 ED Decision to Admit Stat Hospital Course (1) Acute pharyngitis: - Was strep + approx. 2 weeks ago and finished reported Cefdinir x 7 days with improvement in symptoms but then symptoms returned after finishing Abx course - It is possible that this is a secondary viral etiology given the physical appearance of her posterior pharynx however maybe needs slightly longer course of Abx - Repeat rapid strep was negative with culture pending; the [employer] system would not open on the computer to confirm culture prior to discharge; Monospot negative - She does report some improvement with swallowing today and no obvious signs of peritonsillar abscess and did advise to watch for any posterior bulges or displacement of the uvula - Will continue Cefdinir 300 mg BID x 7 more days; Prednisone 20 mg x 5 days to help with swelling; Toradol PRN/Tylenol PRN; Gave Rx for viscous lidocaine however this may not be easily stocked at pharmacies (2) Dehydration: - IV hydration provided; did state she had some mild discomfort distal to IV catheter site without swelling or redness - Did stop fluids and this could be simple irritation or developing phlebitis. Did advise patient to watch for streaking or a rope-like swelling and redness; can apply warm compresses if this would develop Total Time Total Time Spent Total Time Spent (In Minutes): Greater than 30 minutes Discharge Plan Discharge Items Patient Disposition: Home - Self-Care Reason For Visit: DEHYDRATION,PHARYNGITIS Discharge Diagnosis: Acute Pharyngitis/Strep Pharyngitis Discharge Goals: Decrease discomfort, Improve disease control and Prevent disease Activity: Resume your previous activity Non-emergency contact: Primary Care Provider Call non-emergency contact if: you have any medication questions, your symptoms worsen and you have a fever Follow-up/Referrals: Lisseth Cintron MD [Primary Care Provider] - Diet: Regular Addtl Provider Instructions: Acute Pharyngitis/Strep Pharyngitis: - This could be a viral sore throat however it could be residual from your strep throat. The antibiotics may have been enough to keep the second swab from being positive. - It may be reasonable to stretch the treatment out to 10-14 days given your good response to the antibiotics. Start Cefdinir today and take this twice a day. - However if symptoms are worsening please discuss with your family doctor - Also watch for signs of an abscess (pocket of infection) - this can sometimes occur in the back of the throad which can cause the uvula (the hanging tissue in the back of the throat to push off to one side). If you see a bump back there or your uvula pushing out of place get this checked out immediately - Will also use some prednisone to help reduce the swelling in the back of the throat. You will take Prednisone 20 mg daily x 5 days - Will also give a prescription for Toradol to take as needed for pain. This is a strong version of Ibuprofen/Naproxyn/Advil/Motrin so do not take these medications when taking Toradol. However you can take Tylenol and alternate that with the Toradol for fevers/pain. Just follow dosing instructions on the Tyle nol/Acetaminophen bottle - Continue to use your nasal saline to flush the nose out if this helps. Continue your allergy medications as prescribed - Can give some viscous lidocaine to use but some pharmacies will not carry this. There is also a magic mouthwash that has a steroid (which we will give you) and some benadryl and a numbing agent. You can swish/gurgle and spit but you can swallow the lidocaine. Just be mindful that it can numb the throat so sometimes this can suppress the gag reflex so just be mindful of that when eating and drinking Arm: - You were having some discomfort at your IV site. This could be from the fluids and medicines going into them. - This can cause a phlebitis (vein irritation/inflammation) this is usually minor and can cause swelling and redness. Right now we do not see this. Can use warm compresses to this area if bothersome and is normally self-limited. Can discuss with your family doctor if it would occur. Prescriptions: New ketorolac 10 mg tablet 10 mg PO Q6H PRN (Reason: pain) 5 Days Qty: 20 RF: 0 prednisone 20 mg tablet 20 mg PO DAILY 5 Days Qty: 5 RF: 0 cefdinir 300 mg capsule 300 mg PO BID 7 Days Qty: 14 RF: 0 lidocaine HCl [Lidocaine Viscous] 2 % Solution 15 ml MT Q6H PRN (Reason: Sore Throat) 3 Days Qty: 180 RF: 0 Continued sertraline 100 mg tablet 100 mg PO HS RF: 0 albuterol sulfate [ProAir HFA] 90 mcg/actuation HFA aerosol inhaler 2 puff Inhalation DAILY PRN (Reason: Shortness Of Breath Or Wheezing) RF: 0 loratadine 10 mg Tablet 10 mg PO HS RF: 0 cholecalciferol (vitamin D3) [Vitamin D3] 5,000 unit Tablet 5,000 unit PO HS RF: 0 Discontinued ibuprofen 200 mg Tablet 200 mg PO QID PRN (Reason: Pain) RF: 0 Stand-Alone Forms: [facility] Discharge Orders: Discharge Order (Routine); Ordered 09/04/18 Ordered By: Galilea Olguin Admission Data Admit Date/Time: 09/03/18 15:53 Attending Provider: Jani Zhong Admit Provider: Anuel Thompson Primary Care Provider: Lisseth Cintron Other Providers: Anuel Thompson Service: Medical Other Interventions: Discharge Summary Assessment (RN) Last Done: 09/04/18 12:01 DC Date/Time DO NOT enter until pt leaves facility: 09/04/18 13:06
== END 2018-09-04 13:06 | disposition home or self-care (01) ==
LOC: ED 12:13 → 4E 12:13 → SUATTDRO 15:53 → 4E 16:41